=== PATIENT | female | born 1945 | race Asian ===

== ENCOUNTER → 2021-03-23 09:30 | Outpatient (CLI) | payer MEDICARE, SELFPAY ==
[2021-03-23] MEDS: COVID-19 VACC #1, MRNA(MOD) 100 MCG/0.5 ML VIAL IM (09:44)
== END ==
PROVIDERS: Visit Provider Internal Medicine
DX: Z23 Encounter for immunization (principal)
CPT/HCPCS: 0011A; 91301

== ENCOUNTER → 2021-04-28 09:11 | Outpatient (CLI) | payer MEDICARE, SELFPAY ==
[2021-04-28] MEDS: COVID-19 VACC #2, MRNA(MOD) 100 MCG/0.5 ML VIAL IM (09:20)
== END ==
PROVIDERS: Visit Provider Internal Medicine
DX: Z23 Encounter for immunization (principal)
CPT/HCPCS: 0012A; 91301

== ENCOUNTER 2022-10-29 13:08 | Emergency (ER) | payer OTHER, SELFPAY ==
[2022-10-29] VITALS (24 sets, daily range): BP systolic 127–241; BP diastolic 70–135; PULSE 64–108; RESP 11–31; TEMP 36.5; O2SAT 91–100; BMI 26.9
--- NOTE | 2022-10-29 14:12 | DI.RAD.S_ITS ---
PROCEDURE: XR CHEST 1V INDICATIONS: chest pain TECHNIQUE: One view of the chest was acquired. COMPARISON: None. FINDINGS: Surgical changes and devices: None. Lungs and pleura: Mild pulmonary vascular congestion is seen. No pleural effusions or pneumothorax. Mediastinum: Mildly tortuous thoracic aorta is seen. Heart size is mildly enlarged. Bones and chest wall: No suspicious bony lesions. Overlying soft tissues appear unremarkable. IMPRESSION: Mild CHF changes. No definite focal infiltrate. No pleural effusion or pneumothorax. Dictated by: Robin Pruett M.D. on 10/29/2022 at 14:42 Approved by: Robin Pruett M.D. on 10/29/2022 at 14:47
[2022-10-29 15:23] LABS: Add Manual Diff / Slide Review NO; Basophils Absolute Auto 100 /uL (0-100); Basophils Percent Auto 1.2 % (0-2); Eosinophils Absolute Auto 100 /uL (0-450); Eosinophils Percent Auto 2.1 % (2-4); Hematocrit 40.8 % (36-46); Hemoglobin 13.8 g/dL (12.0-16.0); Lymphocytes Absolute Auto 1400 /uL (1100-4500); Lymphocytes Percent Auto 19.3 % (25-40); Mean Corpuscular HGB Conc 33.8 % (30-36); Mean Corpuscular Hemoglobin 29.8 PG (26-34); Monocytes Absolute Auto 500 /uL (0-900); Monocytes Percent Auto 7.5 % (3-14); Neutrophils Absolute Auto 5000 /uL (1500-7000); Neutrophils Percent Auto 69.9 % (50-75); Platelet Count 367 X10^3/uL (150-400); Red Blood Cell Count 4.64 X10^6/uL (4.0-5.2); Red Cell Distribution Width 14.6 % (11.6-14.8); White Blood Cell Count 7.2 X10^3/uL (4.5-11.0)
[2022-10-29 15:30] LABS: INR 0.9 (0.9-1.3); Prothrombin Time 10.5 SECONDS (10.1-12.7)
[2022-10-29 15:35] LABS: Alanine Aminotransferase 23 IU/L (<35); Albumin 4.7 g/dL (3.5-5.0); Albumin Globulin Ratio 1.1 (1.0-2.8); Alkaline Phosphatase 56 U/L (38-126); BUN Creatinine Ratio 28.9 (6-22); Bilirubin Total 1.3 mg/dL (0.2-1.3); Blood Urea Nitrogen 13 mg/dL (7-17); Calcium 9.3 mg/dL (8.4-10.2); Carbon Dioxide 25 mmol/L (22-32); Chloride 104 mmol/L (98-107); Creatine Kinase 160 U/L (30-135); Estimated Glomerular Filt Rate > 60 mL/min (>60); Globulin 4.3 g/dL (1.7-4.1); Glucose 111 mg/dL (80-110); Lipase 122 U/L (23-300); Magnesium 2.3 mg/dL (1.6-2.3); Sodium 139 mmol/L (137-145)
[2022-10-29 15:37] LABS: COVID19 -Nasal RAPID Negative (Negative); HEMOLYSIS 208 (0-50)
[2022-10-29 15:40] LABS: PTT Partial Thromboplastin Tim 36 SECONDS (26-36)
[2022-10-29 15:45] LABS: Troponin I 0.018 ng/mL (0.01-0.034)
[2022-10-29 15:50] LABS: CKMB % Relative Index 0.4 % (1.5-5.0)
--- NOTE | 2022-10-29 16:47 | ED_ITS ---
HPI - General Adult General Chief complaint: Hypertension Stated complaint: HTN Time Seen by Provider: 10/29/22 15:54 Source: patient and EMS Mode of arrival: EMS History of Present Illness HPI narrative: Patient is a 77-year-old female history of hypertension managed by her PCP. Presents today with left-sided chest pain. She got up to go the bathroom and noticed there is left chest pain. She thought she felt a lump there she used pr essure points in [place] medicine to help it. It unfortunately did not go away. She denies any shortness of breath. She is quite talkative. Frustrated that she is been in the ER for so long. She is noted to be quite hypertensive with a blood pressure 222/135. She has no known coronary artery disease. She is not had fever or chills. She denies any abdominal pain nausea or vomiting. She tristan ps bringing up cancer she was worried that it might be breast cancer. Related Data Allergies Allergy/AdvReac Type Severity Reaction Status Date / Time aspirin Allergy Unknown Verified 10/29/22 13:13 Review of Systems Review of Systems Narrative: GENERAL: Denies chills, fatigue, malaise, fever, sweats, travel HEENT: Denies sinus pain, ear pain, sore throat, difficulty swallowing, neck pain RESPIRATORY: Denies dyspnea, cough, wheezing, hemoptysis, sputum. CARDIOVASCULAR: See HPI GASTROINTESTINAL: Denies nausea, vomiting, abdominal pain, diarrhea, constipation, melena. : Denies dysuria, frequency, incontinence, hematuria, urinary retention, flank pain. MUSCULOSKELETAL: Denies weakness, joint pain, or bony pain SKIN: No rash, no erythema, no pruritus NEUROLOGIC: Denies weakness, dizziness, headache, numbness, change in speech, co nfusion PSYCHIATRIC: No concerning psychosocial issues. 12 point review of systems is negative except for those stated above and HPI Patient History Social History Smoking Status: Never smoker Smoking Status: Never smoker alcohol intake frequency: 0-2 drinks per day Substance Use Type: does not use Exam Initial Vital Signs Initial Vital Signs: Vital Signs Temperature 97.7 F 10/29/22 13:09 Pulse Rate 94 H 10/29/22 13:09 Respiratory Rate 14 10/29/22 13:09 Blood Pressure 222/135 H 10/29/22 13:09 Pulse Oximetry 99 10/29/22 13:09 Oxygen Delivery Method 10/29/22 13:09 GENERAL: Alert talkative frustrated 77-year-old female HEENT: Head atraumatic,EOMI, pupils reactive, face symmetric, moist mucous membranes CARDIOVASCULAR: Regular rate and rhythm without murmurs, rubs or gallops. Pain left side of between ribs 2 and 3 mildly tender to touch slightly reproducible no mass RESPIRATORY: Breath sounds equal bilaterally, no wheezes rales or rhonchi. ABDOMEN: Soft, nontender. Normoactive bowel sounds all 4 quadrants. No guarding or rebound. EXTREMITIES: Normal range of motion, no clubbing or edema. Neurovascularly intact NEUROLOGICAL: Alert and oriented x4.Normal gait and speech. SKIN: Warm, dry, no laceration, no petechiae, no rashes or lesions. Course Orders Ordered: Discontinued Medications Labetalol HCl (Labetalol 20 Mg/4 Ml Syringe) 20 mg IV NOW ONE Stop: 10/29/22 15:55 Last Admin: 10/29/22 18:44 Dose: 20 mg Documented By: TYREL Vital Signs Vital signs: Vital Signs - 8 hr 10/29/22 13:09 10/29/22 15:08 10/29/22 15:09 Temperature 97.7 F Pulse Rate 94 H 92 H 87 Respiratory Rate 14 13 16 Blood Pressure 222/135 H Pulse Oximetry 99 99 99 Oxygen Delivery Method Room Air 10/29/22 15:09 10/29/22 15:15 10/29/22 15:15 Temperature Pulse Rate 85 Respiratory Rate 16 Blood Pressure 241/122 H 197/98 H Pulse Oximetry 98 Oxygen Delivery Method Room Air 10/29/22 15:30 10/29/22 15:30 10/29/22 15:45 Temperature Pulse Rate 79 Respiratory Rate 22 Blood Pressure 155/77 H 217/101 H Pulse Oximetry 94 Oxygen Delivery Method 10/29/22 15:45 10/29/22 15:47 10/29/22 15:47 Temperature Pulse Rate 84 82 Respiratory Rate 31 H 24 Blood Pressure 206/99 H Pulse Oximetry 97 97 Oxygen Delivery Method 10/29/22 16:00 10/29/22 16:01 10/29/22 16:01 Temperature Pulse Rate 78 80 Respiratory Rate 22 11 L Blood Pressure 146/72 H Pulse Oximetry 91 98 Oxygen Delivery Method 10/29/22 16:08 10/29/22 16:08 10/29/22 16:15 Temperature Pulse Rate 80 Respiratory Rate 23 Blood Pressure 142/95 H 127/81 Pulse Oximetry 95 Oxygen Delivery Method 10/29/22 16:15 10/29/22 16:30 10/29/22 16:30 Temperature Pulse Rate 79 79 Respiratory Rate 20 19 Blood Pressure 154/81 H Pulse Oximetry 94 94 Oxygen Delivery Method 10/29/22 16:45 10/29/22 16:57 10/29/22 16:57 Temperature Pulse Rate 83 103 H Respiratory Rate Blood Pressure 213/120 H Pulse Oximetry 92 Oxygen Delivery Method 10/29/22 17:00 10/29/22 17:00 10/29/22 17:15 Temperature Pulse Rate 108 H 86 Respiratory Rate 23 Blood Pressure 219/120 H Pulse Oximetry Oxygen Delivery Method 10/29/22 18:44 10/29/22 17:17 10/29/22 18:36 Temperature Pulse Rate 88 85 Respiratory Rate 12 Blood Pressure 201/101 H 201/125 H Pulse Oximetry 98 Oxygen Delivery Method Medical Decision Making Lab Data Result diagrams: 10/29/22 15:10 10/29/22 15:10 Labs: Lab Results 10/29/22 10/29/22 10/29/22 Range/Units 15:10 15:10 15:10 WBC 7.2 (4.5-11.0) X10^3/uL RBC 4.64 (4.0-5.2) X10^6/uL Hgb 13.8 (12.0-16.0) g/dL Hct 40.8 (36-46) % MCV 88.0 (80-100) fL MCH 29.8 (26-34) PG MCHC 33.8 (30-36) % RDW 14.6 (11.6-14.8) % Plt Count 367 (150-400) X10^3/uL Neut % (Auto) 69.9 (50-75) % Lymph % (Auto) 19.3 L (25-40) % [place] % (Auto) 7.5 (3-14) % Eos % (Auto) 2.1 (2-4) % Baso % (Auto) 1.2 (0-2) % Neut # (Auto) 5000 (6379-1281) /uL Lymph # (Auto) 1400 (0008-9599) /uL [place] # (Auto) 500 (0-900) /uL Eos # (Auto) 100 (0-450) /uL Baso # (Auto) 100 (0-100) /uL PT 10.5 (10.1-12.7) SECONDS INR 0.9 (0.9-1.3) APTT 36 (26-36) SECONDS Sodium 139 (137-145) mmol/L Potassium 5.7 H (3.4-5.1) mmol/L Chloride 104 (98-107) mmol/L Carbon Dioxide 25 (22-32) mmol/L BUN 13 (7-17) mg/dL Creatinine 0.45 L (0.52-1.04) mg/dL Estimated GFR > 60 (>60) mL/min BUN/Creatinine Ratio 28.9 H (6-22) Glucose 111 H (80-110) mg/dL Calcium 9.3 (8.4-10.2) mg/dL Magnesium 2.3 (1.6-2.3) mg/dL Total Bilirubin 1.3 (0.2-1.3) mg/dL AST 47 H (14-36) IU/L ALT 23 (<35) IU/L Alkaline Phosphatase 56 (38-126) U/L Total Creatine Kinase 160 H (30-135) U/L CK-MB (CK-2) 0.70 (<2.37) ng/mL CK-MB (CK-2) Rel Index 0.4 L (1.5-5.0) % Troponin I 0.018 (0.01-0.034) ng/mL Total Protein 9.0 H (6.3-8.2) g/dL Albumin 4.7 (3.5-5.0) g/dL Globulin 4.3 H (1.7-4.1) g/dL Albumin/Globulin Ratio 1.1 (1.0-2.8) Lipase 122 (23-300) U/L SARS-CoV-2 (PCR) (Negative) 10/29/22 10/29/22 Range/Units 15:10 17:58 WBC (4.5-11.0) X10^3/uL RBC (4.0-5.2) X10^6/uL Hgb (12.0-16.0) g/dL Hct (36-46) % MCV (80-100) fL MCH (26-34) PG MCHC (30-36) % RDW (11.6-14.8) % Plt Count (150-400) X10^3/uL Neut % (Auto) (50-75) % Lymph % (Auto) (25-40) % [place] % (Auto) (3-14) % Eos % (Auto) (2-4) % Baso % (Auto) (0-2) % Neut # (Auto) (1300-2657) /uL Lymph # (Auto) (8761-1795) /uL [place] # (Auto) (0-900) /uL Eos # (Auto) (0-450) /uL Baso # (Auto) (0-100) /uL PT (10.1-12.7) SECONDS INR (0.9-1.3) APTT (26-36) SECONDS Sodium (137-145) mmol/L Potassium (3.4-5.1) mmol/L Chloride (98-107) mmol/L Carbon Dioxide (22-32) mmol/L BUN (7-17) mg/dL Creatinine (0.52-1.04) mg/dL Estimated GFR (>60) mL/min BUN/Creatinine Ratio (6-22) Glucose (80-110) mg/dL Calcium (8.4-10.2) mg/dL Magnesium (1.6-2.3) mg/dL Total Bilirubin (0.2-1.3) mg/dL AST (14-36) IU/L ALT (<35) IU/L Alkaline Phosphatase (38-126) U/L Total Creatine Kinase (30-135) U/L CK-MB (CK-2) (<2.37) ng/mL CK-MB (CK-2) Rel Index (1.5-5.0) % Troponin I 0.013 (0.01-0.034) ng/mL Total Protein (6.3-8.2) g/dL Albumin (3.5-5.0) g/dL Globulin (1.7-4.1) g/dL Albumin/Globulin Ratio (1.0-2.8) Lipase (23-300) U/L SARS-CoV-2 (PCR) Negative (Negative) Urine Dip Bedside Urine Glucose Negative Bedside Urine Bilirubin - Negative Bedside Urine Ketone - Negative Urine Specific [place] 1.01 Bedside Urine Occult Blood +/- Bedside Urine pH 7 Bedside Urine Protein - Negative Bedside Urine Urobilinogen - Negative Bedside Urine Nitrite - Negative Bedside Urine Leukocytes - Negative Esterase Point of care testing: Urine Dip Bedside Urine Glucose Negative Bedside Urine Bilirubin - Negative Bedside Urine Ketone - Negative Urine Specific [place] 1.01 Bedside Urine Occult Blood +/- Bedside Urine pH 7 Bedside Urine Protein - Negative Bedside Urine Urobilinogen - Negative Bedside Urine Nitrite - Negative Bedside Urine Leukocytes - Negative Esterase Imaging Data Chest x-ray: Radiologist's Impression: XRay Report Signed Patient: Sully Moss MR#: [id number] : 1945 Acct:[id number] Age/Sex: 77 / F Date of Service: 10/29/22 Loc: ED Accession Number: [id number] ?? Procedure: XR chest 1V Ordering Provider: Caroline Cohen D.O. PROCEDURE:? XR CHEST 1V ? INDICATIONS:? chest pain ? TECHNIQUE:? One view of the chest was acquired.? ? COMPARISON:? None. ? FINDINGS:? ? Surgical changes and devices:? None.? ? Lungs and pleura:? Mild pulmonary vascular congestion is seen.? No pleural effusions or pneumothorax.? ? Mediastinum:? Mildly tortuous thoracic aorta is seen.? Heart size is mildly enlarged. ? Bones and chest wall:? No suspicious bony lesions.? Overlying soft tissues appear unremarkable.? ? IMPRESSION:? Mild CHF changes.? No definite focal infiltrate.? No pleural effusion or pneumothorax. ? ? Dictated by: Robin Pruett M.D. on 10/29/2022 at 14:42 ? ? CT scan - chest: Radiologist's Impression: CT Scan Report Signed Patient: Sully Moss MR#: [id number] : 1945 Acct:[id number] Age/Sex: 77 / F Date of Service: 10/29/22 Loc: ED Accession Number: [id number] ?? Procedure: CT angio chest abdomen pelvis Ordering Provider: Caroline Cohen D.O. PROCEDURE:? CT ANGIO CHEST ABDOMEN PELVIS ? INDICATIONS:? chest pain hypertension ? TECHNIQUE:? Precontrast 5 mm thick sections acquired from the lung apices to the iliac crests.? After the administration of intravenous contrast, 2.5 mm thick sections again acquired from the lung apices to the iliac crests.? Maximum intensity projection (MIP) oblique sagittal and coronal reformats were then acquired.? For radiation dose reduction, the following was used:? automated exposure control.? ? COMPARISON:? None. ? FINDINGS:? Image quality:? Excellent.? ? AORTA:? The thoracoabdominal aorta demonstrates no evidence of dissection, significant stenosis, or aneurysm. ? CHEST:? Lungs and pleura:? Mild patchy bilateral mid and lower lung reticulonodular ill- defined densities.? No pleural effusions or pneumothorax.? Central and peripheral airways are patent and normal in caliber.? ? Mediastinum:? Heart size is normal.? Mild calcification of the coronary vasculature.? No pericardial effusion.? No mediastinal or hilar adenopathy by size criteria.? Central pulmonary arteries are normal in size.? Esophagus is normal in caliber.? No hiatal hernias.? ? Bones and chest wall:? No axillary adenopathy by size criteria.? Thyroid gland is within normal limits .? No suspicious bony lesions.? No vertebral body compression fractures.? ? ? ABDOMEN:? Vasculature:? Celiac trunk and mesenteric arteries are patent.? Renal arteries are also patent.? ? Solid organs:? Liver is normal in size .? Right and left hepatic lobe cysts are present.? Gallbladder is surgically absent .? Biliary system is non dilated.? Pancreas enhances normally.? Spleen is normal in size and enhancement.? No right adrenal nodules 15 mm nodule within the medial limb of the left adrenal demonstrating postcontrast Hounsfield units of 31. Both kidneys are normal in size and enhancement, without hydronephrosis.? ? Peritoneum and bowel:? No free fluid or air.? Bowel loops are normal in caliber and wall thickness.? Normal appendix. ? Nodes and vessels:? No retroperitoneal or mesenteric adenopathy by size criteria.? Inferior vena cava is normal in morphology.? ? Miscellaneous:? No ventral hernias.? ? ? PELVIS:? Genitourinary:? Bladder wall thickness is normal.? ? Miscellaneous:? No inguinal hernias or adenopathy.? No ventral hernias.? ? Bones:? No suspicious bony lesions.? No vertebral body compression fractures.? ? ? IMPRESSION:? 1. No acute process. 2. Indeterminate left adrenal nodule; initial further assessment with nonemergent outpatient follow-up adrenal protocol MRI is recommended. 3. Coronary artery disease. 4. Normal appendix. ? ? ? Dictated by: Julia Avalos M.D. on 10/29/2022 at 16:44 ? ? Approved by: Julia Avalos M.D. on 10/29/2022 at 16:47 ? ECG Data Interpretation: Normal sinus rhythm rate 83 HI interval 178 QRS [address] QTC [address] elevations or depressions no T-wave inversions, no priors to comp are MDM Narrative Medical decision making narrative: Patient presents with left-sided chest hypotension. Initial blood work does not show any evidence of hypertensive emergency. After a long conversation with 1 of our staff members her blood pressure came down into the 140s however quickly went right back up into the 200s. I suspect that she is uncontrolled hypotension. She is given 1 dose of labetalol here in the ED blood pressure improves. She is 2- troponins. Recommend that she monitor her blood pressure at home and talk with her PCP in regards to better blood pressure control. She may also require outpatient stress test. I have sent a note to her PCP for this. There is significant bed shortage at this time, unable to get a stress test. At this time she is walking around I think reasonable to discharge her with close outpatient follow-up I have spoken with Dr. Gonzalez in regards to patient in follow-up. At this time agrees with outpatient follow-up better blood pressure control. Unable to tell me what she is on no medication adjustment this time. Recommend calling clinic tomorrow Discharge Plan Departure Patient Disposition: Home Clinical Impression: Hypertension, Atypical chest pain Instructions: DI for High Blood Pressure, DI for Atypical Chest Pain Activity Restrictions/Additional Instructions: *You have been diagnosed with chest pain high blood pressure *What to do: Please monitor your blood pressure at home check once daily Please talk with your primary care provider you may need a stress test as well. *Continue to take medications as directed *Follow up with your primary care provider in 2-3 days or call [phone] *Return to ER if you should have increasing chest pain shortness of breath, or any new, worsening or concerning symptoms Visit Report Forms: Patient Portal/API
--- NOTE | 2022-10-29 17:05 | DI.CT.S_ITS ---
PROCEDURE: CT ANGIO CHEST ABDOMEN PELVIS INDICATIONS: chest pain hypertension TECHNIQUE: Precontrast 5 mm thick sections acquired from the lung apices to the iliac crests. After the administration of intravenous contrast, 2.5 mm thick sections again acquired from the lung apices to the iliac crests. Maximum intensity projection (MIP) oblique sagittal and coronal reformats were then acquired. For radiation dose reduction, the following was used: automated exposure control. COMPARISON: None. FINDINGS: Image quality: Excellent. AORTA: The thoracoabdominal aorta demonstrates no evidence of dissection, significant stenosis, or aneurysm. CHEST: Lungs and pleura: Mild patchy bilateral mid and lower lung reticulonodular ill-defined densities. No pleural effusions or pneumothorax. Central and peripheral airways are patent and normal in caliber. Mediastinum: Heart size is normal. Mild calcification of the coronary vasculature. No pericardial effusion. No mediastinal or hilar adenopathy by size criteria. Central pulmonary arteries are normal in size. Esophagus is normal in caliber. No hiatal hernias. Bones and chest wall: No axillary adenopathy by size criteria. Thyroid gland is within normal limits . No suspicious bony lesions. No vertebral body compression fractures. ABDOMEN: Vasculature: Celiac trunk and mesenteric arteries are patent. Renal arteries are also patent. Solid organs: Liver is normal in size . Right and left hepatic lobe cysts are present. Gallbladder is surgically absent . Biliary system is non dilated. Pancreas enhances normally. Spleen is normal in size and enhancement. No right adrenal nodules 15 mm nodule within the medial limb of the left adrenal demonstrating postcontrast Hounsfield units of 31. Both kidneys are normal in size and enhancement, without hydronephrosis. Peritoneum and bowel: No free fluid or air. Bowel loops are normal in caliber and wall thickness. Normal appendix. Nodes and vessels: No retroperitoneal or mesenteric adenopathy by size criteria. Inferior vena cava is normal in morphology. Miscellaneous: No ventral hernias. PELVIS: Genitourinary: Bladder wall thickness is normal. Miscellaneous: No inguinal hernias or adenopathy. No ventral hernias. Bones: No suspicious bony lesions. No vertebral body compression fractures. IMPRESSION: 1. No acute process. 2. Indeterminate left adrenal nodule; initial further assessment with nonemergent outpatient follow-up adrenal protocol MRI is recommended. 3. Coronary artery disease. 4. Normal appendix. Dictated by: Julia Avalos M.D. on 10/29/2022 at 16:44 Approved by: Julia Avalos M.D. on 10/29/2022 at 16:47
--- NOTE | 2022-10-29 18:11 | PC.NURSE ---
Pt presents with elevated BP. Denies any SOB, chest pain, N&V, or any pain. Pt does take medications for her BP, but does not remember what. Pt says [facility] PCP [facility] [place].
[2022-10-29 18:42] LABS: Troponin I 0.013 ng/mL (0.01-0.034)
[2022-10-29] MEDS: LABETALOL 20 MG/4 ML SYRINGE IV (18:44)
[2022-11-06 16:13] LABS: Potassium 5.7 mmol/L (3.4-5.1)
[2022-11-06 16:18] LABS: Aspartate Aminotransferase 47 IU/L (14-36)
== END 2022-10-29 19:35 | disposition home or self-care (01) ==
PROVIDERS: Emergency Provider Emergency Medicine
DX: I10 Essential (primary) hypertension (principal); R07.9 Chest pain, unspecified; Z20.822 Contact with and (suspected) exposure to COVID-19
CPT/HCPCS: 36415; 71045; 71275; 74174; 80053; 81003; 82550; 82553; 83690; 83735; 84484; 85025; 85610; 85730; 87635; 93005; 93010; 96374; 99284; C9803; Q9967

== ENCOUNTER 2022-11-06 01:27 | Emergency (ER) | payer OTHER, SELFPAY ==
[2022-11-06 01:33] VITALS: BP 208/102; PULSE 61; RESP 16; TEMP 36.9; O2SAT 97; BMI 22.4
[2022-11-06 01:51] LABS: Add Manual Diff / Slide Review NO; Basophils Absolute Auto 100 /uL (0-100); Basophils Percent Auto 1.1 % (0-2); Eosinophils Absolute Auto 100 /uL (0-450); Eosinophils Percent Auto 1.5 % (2-4); Hematocrit 38.7 % (36-46); Hemoglobin 12.6 g/dL (12.0-16.0); Lymphocytes Absolute Auto 1000 /uL (1100-4500); Lymphocytes Percent Auto 16.6 % (25-40); Mean Corpuscular HGB Conc 32.5 % (30-36); Mean Corpuscular Volume 89.3 fL (80-100); Monocytes Absolute Auto 400 /uL (0-900); Monocytes Percent Auto 6.1 % (3-14); Neutrophils Absolute Auto 4600 /uL (1500-7000); Neutrophils Percent Auto 74.7 % (50-75); Platelet Count 350 X10^3/uL (150-400); Red Blood Cell Count 4.33 X10^6/uL (4.0-5.2); Red Cell Distribution Width 14.8 % (11.6-14.8); White Blood Cell Count 6.2 X10^3/uL (4.5-11.0)
[2022-11-06 01:52] LABS: Prothrombin Time 11.4 SECONDS (10.1-12.7)
[2022-11-06 01:56] LABS: Alanine Aminotransferase 20 IU/L (<35); Albumin 4.2 g/dL (3.5-5.0); Albumin Globulin Ratio 1.3 (1.0-2.8); Alkaline Phosphatase 58 U/L (38-126); Aspartate Aminotransferase 26 IU/L (14-36); BUN Creatinine Ratio 26.8 (6-22); Bilirubin Total 0.7 mg/dL (0.2-1.3); Blood Urea Nitrogen 15 mg/dL (7-17); Calcium 9.2 mg/dL (8.4-10.2); Carbon Dioxide 27 mmol/L (22-32); Chloride 100 mmol/L (98-107); Estimated Glomerular Filt Rate > 60 mL/min (>60); Globulin 3.3 g/dL (1.7-4.1); Glucose 120 mg/dL (80-110); HEMOLYSIS < 15 (0-50); Lipase 96 U/L (23-300); Potassium 3.5 mmol/L (3.4-5.1); Sodium 136 mmol/L (137-145); Total Protein 7.5 g/dL (6.3-8.2)
--- NOTE | 2022-11-06 01:59 | ED.GENADULT ---
HPI - General Adult General Chief complaint: Abdominal Pain Stated complaint: abd px Time Seen by Provider: 11/06/22 01:30 Source: patient Mode of arrival: EMS Limitations: no limitations History of Present Illness HPI narrative: Patient is a 77-year-old female who is here for evaluation of which she states initially was lower abdominal pain. Upon my evaluation she states that she is constipated. Has been a couple days and she is had a bowel movement. She told me that she was not having abdominal pain. She stated that she felt like there was stool about ready to come out but it was very hard. She tried to disimpact herself at home without any success. She also states she took some Imodium not knowing that this medication could potentially make her constipation worse. She is not tried any laxatives. Has not had any vomiting. Related Data Allergies Allergy/AdvReac Type Severity Reaction Status Date / Time aspirin Allergy Unknown Verified 10/29/22 13:13 Review of Systems Constitutional Constitutional: Reports system reviewed and no additional complaints, except as documented Gastrointestinal Gastrointestinal: Reports system reviewed and no additional complaints, except as documented Genitourinary Genitourinary: Reports system reviewed and no additional complaints, except as documented Hematologic/Lymphatic On Anticoagulants: No Patient History Medical History Hypertension Social History Smoking Status: Never smoker Smoking Status: Never smoker alcohol intake frequency: 0-2 drinks per day Substance Use Type: does not use Exam Initial Vital Signs Initial Vital Signs: Vital Signs Temperature 98.4 F 11/06/22 01:33 Pulse Rate 61 11/06/22 01:33 Respiratory Rate 16 11/06/22 01:33 Blood Pressure 208/102 H 11/06/22 01:33 Pulse Oximetry 97 11/06/22 01:33 Oxygen Delivery Method 11/06/22 01:33 Const General: cooperative and comfortable HENMT Head: normal to inspection and normocephalic Resp Effort & Inspection: normal respiratory effort Cardio Rate: regular rate GI Inspection: normal to inspection Palpation: soft, No firm and No tender Skin General: no rashes or lesions noted Neuro General: patient alert, patient awake and moves all extremities Extrem General: normal to inspection and capillary refill normal Psych Appearance: grossly normal Course Orders Ordered: ED Orders 11/06/22 01:35 Complete Blood Count AUTO DIFF Stat Comprehensive Metabolic Panel Stat Lipase Stat Prothrombin Time INR Stat 11/06/22 01:36 EKG-12 Lead Stat Discontinued Medications Magnesium Hydroxide (Magnesium Hydroxide 30 Ml Udc) 30 ml PO NOW ONE Stop: 11/06/22 03:13 Last Admin: 11/06/22 03:22 Dose: 30 ml Documented By: JACKSON Sodium Biphosphate/Sodium Phosphate (Fleets Enema) 1 each ID NOW ONE Stop: 11/06/22 01:59 Last Admin: 11/06/22 02:22 Dose: 1 each Documented By: JACKSON Vital Signs Vital signs: Vital Signs - 8 hr 11/06/22 01:33 Temperature 98.4 F Pulse Rate 61 Respiratory Rate 16 Blood Pressure 208/102 H Pulse Oximetry 97 Oxygen Delivery Method Room Air Medical Decision Making Medical Records Medical records reviewed: Yes I reviewed the patient's medical records. Lab Data Lab results reviewed: Yes I reviewed the patient's lab results. Result diagrams: 11/06/22 01:35 11/06/22 01:35 Labs: Lab Results 11/06/22 11/06/22 11/06/22 Range/Units 01:35 01:35 01:35 WBC 6.2 (4.5-11.0) X10^3/uL RBC 4.33 (4.0-5.2) X10^6/uL Hgb 12.6 (12.0-16.0) g/dL Hct 38.7 (36-46) % MCV 89.3 (80-100) fL MCH 29.0 (26-34) PG MCHC 32.5 (30-36) % RDW 14.8 (11.6-14.8) % Plt Count 350 (150-400) X10^3/uL Neut % (Auto) 74.7 (50-75) % Lymph % (Auto) 16.6 L (25-40) % [place] % (Auto) 6.1 (3-14) % Eos % (Auto) 1.5 L (2-4) % Baso % (Auto) 1.1 (0-2) % Neut # (Auto) 4600 (3368-8251) /uL Lymph # (Auto) 1000 L (4435-5978) /uL [place] # (Auto) 400 (0-900) /uL Eos # (Auto) 100 (0-450) /uL Baso # (Auto) 100 (0-100) /uL PT 11.4 (10.1-12.7) SECONDS INR 1.0 (0.9-1.3) Sodium 136 L (137-145) mmol/L Potassium 3.5 D (3.4-5.1) mmol/L Chloride 100 (98-107) mmol/L Carbon Dioxide 27 (22-32) mmol/L BUN 15 (7-17) mg/dL Creatinine 0.56 (0.52-1.04) mg/dL Estimated GFR > 60 (>60) mL/min BUN/Creatinine Ratio 26.8 H (6-22) Glucose 120 H (80-110) mg/dL Calcium 9.2 (8.4-10.2) mg/dL Total Bilirubin 0.7 (0.2-1.3) mg/dL AST 26 (14-36) IU/L ALT 20 (<35) IU/L Alkaline Phosphatase 58 (38-126) U/L Total Protein 7.5 (6.3-8.2) g/dL Albumin 4.2 (3.5-5.0) g/dL Globulin 3.3 (1.7-4.1) g/dL Albumin/Globulin Ratio 1.3 (1.0-2.8) Lipase 96 (23-300) U/L ECG Data Attestation: I personally reviewed and interpreted this ECG as follows: Interpretation: Sinus bradycardia Ventricular rate of 58 LVH Normal axis Nonspecific ST T wave changes MDM Narrative Medical decision making narrative: Patient has a benign abdominal exam. Labs are unremarkable. I do feel that we can hold on any radiologic studies for now. She was given an enema with a very small bowel movement afterwards. She states that a lot of time she will drink some milk and that will cause her to have a bowel movement so she was given milk here in the ER. We also did milk of magnesia. I told her to avoid taking the Imodium. She was given return precautions. She expressed understanding and agreement. Discharge Plan Departure Patient Disposition: Home Clinical Impression: Constipation Instructions: DI for Constipation Activity Restrictions/Additional Instructions: I recommend that you continue with laxatives. You can try [id number] laxatives such as MiraLax. Be sure that you increase your fluid intake. Return to the emergency department for any new symptoms.
[2022-11-06] MEDS: FLEETS ENEMA 1 EACH PR (02:22)
[2022-11-06] MEDS: MAGNESIUM HYDROXIDE 30 ML UDC PO (03:22)
[2022-11-06 04:43] VITALS: BP 195/89; PULSE 84; RESP 20; O2SAT 97
== END 2022-11-06 04:45 | disposition home or self-care (01) ==
PROVIDERS: Emergency Provider Emergency Medicine
DX: K59.00 Constipation, unspecified (principal); R00.1 Bradycardia, unspecified
CPT/HCPCS: 36415; 80053; 83690; 85025; 85610; 93005; 99283; 99284

== ENCOUNTER → 2022-11-16 14:59 | Outpatient (CLI) | payer OTHER, SELFPAY ==
--- NOTE | 2022-11-16 15:00 | DI.MG.S_ITS ---
BILATERAL DIGITAL SCREENING MAMMOGRAM 3D/2D WITH CAD: 11/16/2022 CLINICAL: Routine screening. Comparison is made to exam dated: 09/21/2020 mammogram - outside. There are scattered areas of fibroglandular density in both breasts (category b / 25%-50% glandular tissue). Current study was also evaluated with a Computer Aided Detection (CAD) system. No significant masses, calcifications, or other findings are seen in either breast. There has been no significant interval change. IMPRESSION: NEGATIVE There is no mammographic evidence of malignancy. A 1 year screening mammogram is recommended. Based on the Tyrer Cuzick model (a risk assessment model) the patient's lifetime risk is 3.1% and her 10 year risk is 3.1%. According to the ACR, ACS, and NCCN guidelines, an annual breast MRI exam along with mammogram is recommended if the patient's lifetime risk is 20% or greater. This exam was interpreted at Station ID: [id number]. NOTE: For mammograms, a report in lay terms will be sent to the patient. Approximately 15% of breast malignancies will not be visualized mammographically. In the management of a palpable breast mass, a negative mammogram must not discourage biopsy of a clinically suspicious lesion. Electronically Signed By: Penelope tapia/ha:11/16/2022 16:19:42 letter sent: Normal Exam ACR BI-RADS Category 1: Negative 3341F
--- NOTE | 2022-11-16 15:01 | DI.MRI.S_ITS ---
PROCEDURE: MR ABDOMEN WO CON INDICATIONS: disorders of adrenal gland TECHNIQUE: Coronal HASTE, axial 2-D FLASH in- and [id number] with subtractions from the hepatic dome to the iliac crests. COMPARISON: [facility], CT, CT ANGIO CHEST ABDOMEN PELVIS, 10/29/2022, 17:25. FINDINGS: Image quality: There is susceptibility artifact in the anterior part of the image, likely from overlying material, obscuring these regions. Please note this is noncontrast MR with limited sequences to only evaluate the adrenals and intra-abdominal findings are not fully evaluated. There is also motion degradation. Lower chest: No basal effusions. Lungs are not well evaluated on this study. Solid organs: Suspected liver cysts. Some of these have hypointense rim, which may be from prior hemorrhage. These are incompletely evaluated on this noncontrast MR. Gallbladder is absent. No pathologic dilation of the biliary tree or pancreatic duct, in the absence of the gallbladder. No splenomegaly. No hydronephrosis. Left medial adrenal nodule demonstrates chemical shift artifact, compatible with a lipid rich adenoma. This is also supported by the low attenuation on precontrast images from prior CT. Vessels and lymph nodes: No abdominal aortic aneurysm. No obvious adenopathy. Bowel and peritoneum: No bowel obstruction. Mildly distended stomach. No definite ascites. Body wall: Not fully evaluated, overall unremarkable. Bones: No acute or suspicious osseous finding. There is scoliosis. IMPRESSION: Left adrenal lesion is compatible with a lipid rich adenoma. Other findings are not well evaluated on this dedicated MR for the adrenal glands. Dictated by: Ravindra Ramos M.D. on 11/16/2022 at 17:19 Approved by: Ravindra Ramos M.D. on 11/16/2022 at 17:25
== END ==
PROVIDERS: PCP Family Medicine; Referring Provider Family Medicine; Visit Provider Family Medicine
DX: Z12.31 Encounter for screening mammogram for malignant neoplasm of breast (principal); E27.8 Other specified disorders of adrenal gland
CPT/HCPCS: 74181; 77063; 77067

== ENCOUNTER → 2022-11-23 11:03 | Outpatient (CLI) | payer OTHER, SELFPAY ==
--- NOTE | 2022-11-23 | DI.RAD.S_ITS ---
PROCEDURE: XR KNEE RT 3V INDICATIONS: Pain in unspecified knee TECHNIQUE: 3 views of the knee were acquired. COMPARISON: [facility], CR, XR KNEE LT 3V, 11/23/2022, 11:17. FINDINGS: Bones: Severe joint space narrowing at the lateral compartment. There is tricompartmental joint space narrowing and osteophytosis. Heterotopic calcification superior and lateral to the knee joint. Enlarged flabella or heterotopic calcification posteriorly. No fractures or dislocations. No suspicious bony lesions. Soft tissues: No joint effusion. No suspicious soft tissue calcifications. IMPRESSION: Severe DJD at the right knee lateral compartment. Dictated by: Srinivas Saunders M.D. on 11/23/2022 at 14:53 Approved by: Srinivas Saunders M.D. on 11/23/2022 at 14:54
--- NOTE | 2022-11-23 | DI.RAD.S_ITS ---
PROCEDURE: XR KNEE LT 3V INDICATIONS: Pain in unspecified knee TECHNIQUE: 3 views of the knee were acquired. COMPARISON: [facility], CR, XR KNEE RT 3V, 11/23/2022, 11:17. FINDINGS: Bones: No fractures or dislocations. Tricompartmental osteophytosis and joint space narrowing. No suspicious bony lesions. Soft tissues: No joint effusion. No suspicious soft tissue calcifications. IMPRESSION: Moderate to severe left knee DJD. Dictated by: Srinivas Saunders M.D. on 11/23/2022 at 14:51 Approved by: Srinivas Saunders M.D. on 11/23/2022 at 14:52
== END ==
PROVIDERS: PCP Family Medicine; Referring Provider Family Medicine; Visit Provider Family Medicine
DX: M17.0 Bilateral primary osteoarthritis of knee (principal); M25.561 Pain in right knee; M25.562 Pain in left knee
CPT/HCPCS: 73562

== ENCOUNTER → 2022-12-13 12:39 | Outpatient (CLI) | payer OTHER, SELFPAY ==
--- NOTE | 2022-12-13 | DI.RAD.S_ITS ---
PROCEDURE: XR KNEE RT 3V INDICATIONS: Rt Knee Pain TECHNIQUE: 3 views of the knee were acquired. COMPARISON: [facility], CR, XR KNEE RT 3V, 11/23/2022, 11:17. [facility], CR, XR KNEE LT 3V, 11/23/2022, 11:17. FINDINGS: Bones: No acute fracture or dislocation identified. Severe lateral compartment joint space narrowing and articular surface deformity redemonstrated. Severe patellofemoral compartment narrowing and spurring also present. Soft tissues: No definite joint effusion. Similar nonspecific calcification superior and lateral to the knee joint and at the posterior knee. IMPRESSION: No acute abnormality or significant interval change identified. Severe degenerative changes of the knee present as before. If symptoms persist, follow-up radiographs and/or CT or MRI may be helpful for further evaluation. Dictated by: Umesh aBrber M.D. on 12/13/2022 at 20:40 Approved by: Umesh Barber M.D. on 12/13/2022 at 20:43
== END ==
PROVIDERS: PCP Family Medicine; Referring Provider Family Medicine; Visit Provider Family Medicine
DX: M25.561 Pain in right knee (principal)
CPT/HCPCS: 73562

== ENCOUNTER 2022-12-25 11:20 | Emergency (ER) | payer OTHER, SELFPAY ==
[2022-12-25] VITALS (7 sets, daily range): BP systolic 151–197; BP diastolic 81–100; PULSE 55–77; RESP 15; TEMP 37.1; O2SAT 95–98; BMI 29.0
--- NOTE | 2022-12-25 11:34 | ED.GENADULT ---
HPI - General Adult General Chief complaint: Hypertension Stated complaint: hypertension 210/114 no complaints Source: patient Mode of arrival: EMS History of Present Illness HPI narrative: 77-year-old female presenting with asymptomatic hypertension. Patient reports that she is enrolled in her 's morning check in by home Health, found to have hypertension with systolics in the 200s, referred to the emergency department for further evaluation. Patient denies any new or acute symptoms, please chronic right knee pain and financial stress that has been present over the last several months. No chest pain or shortness of breath, no abdominal pain. No headache or change in vision. No focal weakness or numbness. On review of patient's prior medical records, patient is markedly hypertensive on to most recent prior emergency department visits. Related Data Home Medications Medication Instructions Recorded Confirmed atorvastatin 80 mg tablet 80 mg PO DAILY 12/25/22 12/25/22 calcium carb and lactate 200 2 tab PO BID 12/25/22 12/25/22 mg-vitamin D3 6.25 mcg (250 unit) tablet calcium carbonate 600 mg-vitamin 2 tab PO DAILY 12/25/22 12/25/22 D3 10 mcg (400 unit) tablet (Calcium 600 + D(3)) cyanocobalamin (vitamin B-12) 500 mcg PO DAILY 12/25/22 12/25/22 1,000 mcg tablet (Vitamin B-12) hydrochlorothiazide 25 mg tablet 25 mg PO DAILY 12/25/22 12/25/22 irbesartan 150 mg tablet 150 mg PO DAILY 12/25/22 12/25/22 levothyroxine 75 mcg tablet 75 mcg PO DAILY 12/25/22 12/25/22 Allergies Allergy/AdvReac Type Severity Reaction Status Date / Time aspirin Allergy Unknown Verified 12/25/22 11:26 Patient History Medical History Hypertension Social History Smoking Status: Never smoker Smoking Status: Never smoker alcohol intake frequency: holidays/special occasions only Substance Use Type: does not use Exam Narrative Exam Narrative: Vitals reviewed. Nursing note reviewed Constitutional: interactive HENT: Moist mucous membranes EYES: No scleral icterus NECK: no masses CV: Well perfused peripherally, no cyanosis present PULM: Unlabored respirations, symmetric chest rise ABD: Non-distended MS: No gross deformities, no asymmetric edema noted SKIN: Warm and dry. PSYCH: Appropriate affect NEURO: Follows simple commands, moves extremities, interactive with exam Initial Vital Signs Initial Vital Signs: Vital Signs Temperature 98.7 F 12/25/22 11:26 Pulse Rate 75 12/25/22 11:26 Respiratory Rate 15 12/25/22 11:26 Blood Pressure 190/100 H 12/25/22 11:26 Pulse Oximetry 96 12/25/22 11:26 Oxygen Delivery Method 12/25/22 11:26 Course Vital Signs Vital signs: Vital Signs - 8 hr 12/25/22 11:26 Temperature 98.7 F Pulse Rate 75 Respiratory Rate 15 Blood Pressure 190/100 H Pulse Oximetry 96 Oxygen Delivery Method Room Air Medical Decision Making MDM Narrative Medical decision making narrative: 77-year-old female presenting with asymptomatic hypertension in the setting of known poorly controlled hypertension. On presentation, vital signs notable for blood pressure 190/100, this is down trending from prior to arrival without intervention. Physical exam on presentation notable for reassuring cardiopulmonary exam, benign abdomen, no focal neurologic deficits. Initial concern for asymptomatic hypertension, cold CVA, metabolic derangement, infectious etiology, medication noncompliance. Low suspicion for ACS given patient without active symptoms, EKG with normal sinus rhythm, no evidence of acute ischemia. Consistent with ACEP clinical guidelines, further intervention was held given patient continues to be asymptomatic while in the emergency department. Patient's primary care office was contacted to obtain medical records and medications which are not present on the EMR. Patient was observed in the emergency department without intervention had improvement in patient's prior to arrival hypertension down to a blood pressure of 150s systolic. Discussed plan for outpatient follow up with patient's primary care provider to discuss medication management. Patient was instructed to continue her outpatient antihypertensives as directed. Return precautions discussed. Discharge Plan Departure Patient Disposition: Home Clinical Impression: Hypertension Instructions: DI for High Blood Pressure Prescriptions: No Action atorvastatin 80 mg Tablet 80 mg PO DAILY cyanocobalamin (vitamin B-12) [Vitamin B-12] 1,000 mcg Tablet 500 mcg PO DAILY levothyroxine 75 mcg Tablet 75 mcg PO DAILY hydrochlorothiazide 25 mg Tablet 25 mg PO DAILY irbesartan 150 mg Tablet 150 mg PO DAILY calcium carbonate-vitamin D3 [Calcium 600 + D(3)] 600 mg-10 mcg (400 unit) Tablet 2 tab PO DAILY calcium carb,lactat-vitamin D3 200 mg-6.25 mcg (250 unit) Tablet 2 tab PO BID Referrals: Paddy Hartman MD [Primary Care Provider] - Stand Alone Forms: Patient Portal/API
--- NOTE | 2022-12-25 13:00 | PC.NURSE ---
Pt was being checked on per [facility] program by EMS. Blood pressure was 200s/100s and pt PCP advised pt to come to ED. Pt denies any symptoms, no chest pain, headaches, or dizziness. Reports she has been taking all regularly scheduled meds.
== END 2022-12-25 13:30 | disposition home or self-care (01) ==
PROVIDERS: Emergency Provider Emergency Medicine; PCP Family Medicine
DX: I10 Essential (primary) hypertension (principal)
CPT/HCPCS: 93005; 99283

== ENCOUNTER 2023-06-06 11:46 | Emergency (ER) | payer OTHER, SELFPAY ==
[2023-06-06 11:49] VITALS: BP 181/98; PULSE 68; RESP 14; TEMP 36.7; O2SAT 96; BMI 61.2
--- NOTE | 2023-06-06 12:06 | DI.RAD.S_ITS ---
PROCEDURE: XR CHEST 1V INDICATIONS: Shortness of breath TECHNIQUE: One view of the chest was acquired. COMPARISON: [facility], CR, XR CHEST 1V, 10/29/2022, 14:23. FINDINGS: Surgical changes and devices: None. Lungs and pleura: Lungs are clear. No pleural effusions or pneumothorax. Mediastinum: Mediastinal contours appear normal. Heart size is normal. Bones and chest wall: No suspicious bony lesions. Large osteophytes off of the humeral heads bilaterally. Overlying soft tissues appear unremarkable. IMPRESSION: No acute pulmonary process. Dictated by: Aldo Abad M.D. on 06/06/2023 at 12:57 Approved by: Aldo Abad M.D. on 06/06/2023 at 13:06
[2023-06-06 12:30] LABS: Add Manual Diff / Slide Review NO; Basophils Absolute Auto 100 /uL (0-100); Basophils Percent Auto 1.7 % (0-2); Eosinophils Absolute Auto 100 /uL (0-450); Eosinophils Percent Auto 0.9 % (2-4); Hematocrit 41.3 % (36-46); Hemoglobin 13.9 g/dL (12.0-16.0); Lymphocytes Absolute Auto 1700 /uL (1100-4500); Lymphocytes Percent Auto 20.7 % (25-40); Mean Corpuscular HGB Conc 33.8 % (30-36); Mean Corpuscular Volume 88.9 fL (80-100); Monocytes Absolute Auto 700 /uL (0-900); Monocytes Percent Auto 8.9 % (3-14); Neutrophils Absolute Auto 5600 /uL (1500-7000); Neutrophils Percent Auto 67.8 % (50-75); Platelet Count 371 X10^3/uL (150-400); Red Blood Cell Count 4.64 X10^6/uL (4.0-5.2); Red Cell Distribution Width 14.8 % (11.6-14.8); White Blood Cell Count 8.3 X10^3/uL (4.5-11.0)
[2023-06-06 12:39] LABS: Prothrombin Time 11.5 SECONDS (10.1-12.7)
[2023-06-06 12:44] LABS: Lactate (Lactic Acid) 1.1 mmol/L (0.7-2.1)
[2023-06-06 12:45] LABS: Alanine Aminotransferase 31 IU/L (<35); Albumin 4.6 g/dL (3.5-5.0); Albumin Globulin Ratio 1.4 (1.0-2.8); Alkaline Phosphatase 64 U/L (38-126); Aspartate Aminotransferase 41 IU/L (14-36); Bilirubin Total 1.1 mg/dL (0.2-1.3); Blood Urea Nitrogen 19 mg/dL (7-17); Calcium 9.9 mg/dL (8.4-10.2); Carbon Dioxide 26 mmol/L (22-32); Chloride 103 mmol/L (98-107); Estimated Glomerular Filt Rate > 60 mL/min (>60); Globulin 3.4 g/dL (1.7-4.1); Glucose 90 mg/dL (80-110); HEMOLYSIS 29 (0-50); Potassium 4.2 mmol/L (3.4-5.1); Sodium 137 mmol/L (137-145)
[2023-06-06 12:56] LABS: NT-proBNP (BNP-Adult 18+) 528 pg/mL (<450); Troponin I < 0.012 ng/mL (0.01-0.034)
== END 2023-06-06 14:58 | disposition left against medical advice (07) ==
PROVIDERS: Emergency Provider Emergency Medicine; PCP Family Medicine
DX: R06.02 Shortness of breath (principal); R42 Dizziness and giddiness
CPT/HCPCS: 36415; 71045; 80053; 83605; 83880; 84484; 85025; 85610; 93005; 99283

== ENCOUNTER 2024-05-04 16:30 | Emergency (ER) | payer OTHER, SELFPAY ==
[2024-05-04] VITALS (8 sets, daily range): BP systolic 173–218; BP diastolic 88–133; PULSE 78–146; RESP 16–32; TEMP 36.6; O2SAT 94–99; BMI 27.4
--- NOTE | 2024-05-04 19:52 | DI.RAD.S_ITS ---
PROCEDURE: XR CHEST 1V INDICATIONS: chest pain TECHNIQUE: One view of the chest was acquired. COMPARISON: [facility], CR, XR CHEST 1V, 06/06/2023, 12:21. FINDINGS: Surgical changes and devices: None. Lungs and pleura: Diffuse interstitial prominence. Streaky bibasilar opacities. Small bilateral pleural effusions. Fluid noted in the right minor fissure. No pneumothorax. No dense consolidation. Mediastinum: Mediastinal contours appear stable. Heart size is mildly enlarged. Bones and chest wall: No suspicious bony lesions. Overlying soft tissues appear unremarkable. IMPRESSION: Mild cardiomegaly with findings suggestive of pulmonary edema/CHF. A concurrent infectious or inflammatory process may have a similar appearance if clinically appropriate. No dense consolidations. Dictated by: Daniel Rajan M.D. on 05/04/2024 at 20:32 Approved by: Daniel Rajan M.D. on 05/04/2024 at 20:34
[2024-05-04 20:01] LABS: Add Manual Diff / Slide Review NO; Basophils Absolute Auto 100 /uL (0-100); Basophils Percent Auto 1.2 % (0-2); Eosinophils Absolute Auto 100 /uL (0-450); Eosinophils Percent Auto 1.4 % (2-4); Hematocrit 41.8 % (36-46); Hemoglobin 14.1 g/dL (12.0-16.0); Lymphocytes Absolute Auto 1900 /uL (1100-4500); Lymphocytes Percent Auto 23.7 % (25-40); Mean Corpuscular HGB Conc 33.7 % (30-36); Mean Corpuscular Hemoglobin 30.3 PG (26-34); Mean Corpuscular Volume 89.8 fL (80-100); Monocytes Absolute Auto 500 /uL (0-900); Monocytes Percent Auto 6.3 % (3-14); Neutrophils Absolute Auto 5400 /uL (1500-7000); Neutrophils Percent Auto 67.4 % (50-75); Platelet Count 326 X10^3/uL (150-400); Red Blood Cell Count 4.66 X10^6/uL (4.0-5.2); Red Cell Distribution Width 14.8 % (11.6-14.8)
[2024-05-04 20:02] LABS: Prothrombin Time 11.3 SECONDS (9.4-12.5)
--- NOTE | 2024-05-04 20:02 | EKG_ITS ---
[facility] [place] [id number] [place] [id number] Test Date: 2024-05-04 Pat Name: Sully Moss Department: Room: Gender: Female System Administration Advisor: JESSICA : 1945 Requested By: Order Number: [id number] Reading MD: Michael Vera Measurements Intervals [place] Rate: 79 P: 75 IA: 222 QRS: 23 QRSD: 106 T: 99 QT: 344 QTc: 394 Interpretive Statements Sinus rhythm with 1st degree AV block ST & T wave abnormality, consider lateral ischemia Electronically Signed On 05-06-2024 18:37:26 PDT by Michael Vera
[2024-05-04 20:05] LABS: PTT Partial Thromboplastin Tim 40 SECONDS (25.1-36.5)
[2024-05-04 20:20] LABS: Alanine Aminotransferase 24 IU/L (<35); Albumin 4.7 g/dL (3.5-5.0); Albumin Globulin Ratio 1.3 (1.0-2.8); Alkaline Phosphatase 76 U/L (38-126); Aspartate Aminotransferase 40 IU/L (14-36); BUN Creatinine Ratio 27.8 (6-22); Bilirubin Total 0.8 mg/dL (0.2-1.3); Blood Urea Nitrogen 15 mg/dL (7-17); Calcium 9.4 mg/dL (8.4-10.2); Carbon Dioxide 27 mmol/L (22-32); Chloride 105 mmol/L (98-107); Creatine Kinase 103 U/L (30-135); Estimated Glomerular Filt Rate > 60 mL/min (>60); Globulin 3.5 g/dL (1.7-4.1); Glucose 145 mg/dL (80-110); HEMOLYSIS 43 (0-50); Lipase 118 U/L (23-300); Magnesium 2.2 mg/dL (1.6-2.3); Sodium 139 mmol/L (137-145); Total Protein 8.2 g/dL (6.3-8.2)
[2024-05-04 20:25] LABS: Troponin I < 0.012 ng/mL (0.01-0.034)
--- NOTE | 2024-05-04 20:43 | ED_ITS ---
HPI - General Adult General Chief complaint: Hypertension Stated complaint: HBP, sent by EMS Time Seen by Provider: 05/04/24 18:58 Source: patient Mode of arrival: Family Vehicle History of Present Illness HPI narrative: 78-year-old woman who reportedly is followed by Dr Hartman. She has a history of hypertension, hyperlipidemia, hypothyroid problems and states she has not taken her medications for the last 3 months. She currently lives with 1 son in [place]. Has multiple psychosocial issues that she would like fixed today including the fact that she does not like living with her son, she prefers her son that is in [place], that she is returning to the [facility] on , she has 4 boxes of medications from her , significant flight of ideas and difficult to redirect however no complaints of chest pain, dyspnea, orthopnea. Her speech and breathing is clearly not limited in any way. No evidence of stroke or acute neurologic findings. EMS recommended that she come to the emergency department today for follow up and further evaluation of her significant hypertension for which she is not taking prescribed medications. Related Data Home Medications Medication Instructions Recorded Confirmed atorvastatin 80 mg tablet 80 mg PO DAILY 12/25/22 12/25/22 calcium carb and lactate 200 2 tab PO BID 12/25/22 12/25/22 mg-vitamin D3 6.25 mcg (250 unit) tablet calcium carbonate 600 mg-vitamin 2 tab PO DAILY 12/25/22 12/25/22 D3 10 mcg (400 unit) tablet (Calcium 600 + D(3)) cyanocobalamin (vitamin B-12) 500 mcg PO DAILY 12/25/22 12/25/22 1,000 mcg tablet (Vitamin B-12) hydrochlorothiazide 25 mg tablet 25 mg PO DAILY 12/25/22 12/25/22 irbesartan 150 mg tablet 150 mg PO DAILY 12/25/22 12/25/22 levothyroxine 75 mcg tablet 75 mcg PO DAILY 12/25/22 12/25/22 Previous Rx's Medication Instructions Recorded hydrochlorothiazide 25 mg tablet 25 mg PO DAILY #30 tabs 05/04/24 irbesartan 150 mg tablet 150 mg PO DAILY #30 tabs 05/04/24 Allergies Allergy/AdvReac Type Severity Reaction Status Date / Time aspirin Allergy Unknown Verified 12/25/22 11:26 Review of Systems Review of Systems Narrative: Pertinent positive and negative findings as per HPI Patient History Medical History (Updated 05/04/24 @ 21:33 by Funmilayo Greenwood MD) Hyperthyroidism Hyperlipidemia Hypertension Social History Smoking Status: Never smoker Smoking Status: Never smoker alcohol intake frequency: holidays/special occasions only Substance Use Type: does not use Exam Initial Vital Signs Initial Vital Signs: Vital Signs Temperature 97.8 F 05/04/24 16:36 Pulse Rate 95 H 05/04/24 16:36 Respiratory Rate 16 05/04/24 16:36 Blood Pressure 218/133 H 05/04/24 16:36 Pulse Oximetry 98 05/04/24 16:36 Oxygen Delivery Method Room Air 05/04/24 16:36 General: Healthy appearing, in no acute distress. Well-nourished well- developed HEENT: Moist mucous membranes, normal sclera with reactive pupils, Neck: No JVD, supple Respiratory: Lungs are clear to auscultation, no wheezing no rales no rhonchi. Full and symmetrical air movement Cardiac: Regular rate and rhythm no murmurs no bruits Abdomen: Soft, nontender, good bowel tones, no flank pain Skin: Warm and dry, no rashes Neurologic: Grossly neurologically intact with no obvious asymmetries or abnormalities, no tremor Extremities: No trauma, well perfused Psych: Tangential, slightly pressured, difficult to redirect, able to speak in complete sentences is oriented to person time and place Course Orders Ordered: ED Orders 05/04/24 19:36 Complete Blood Count AUTO DIFF Stat Comprehensive Metabolic Panel Stat Lipase Stat Magnesium Stat PTT Partial Thromboplastin Jeremi Stat Prothrombin Time INR Stat Troponin & CK Cardiac Panel Stat 05/04/24 19:52 XR chest 1V Stat EKG-12 Lead Stat Vital Signs Vital signs: Vital Signs - 8 hr 05/04/24 16:36 Temperature 97.8 F Pulse Rate 95 H Respiratory Rate 16 Blood Pressure 218/133 H Pulse Oximetry 98 Oxygen Delivery Method Room Air Medical Decision Making Lab Data 05/04/24 19:36 05/04/24 19:36 Labs: Lab Results 05/04/24 Range/Units 19:36 WBC 8.0 (4.5-11.0) X10^3/uL RBC 4.66 (4.0-5.2) X10^6/uL Hgb 14.1 (12.0-16.0) g/dL Hct 41.8 (36-46) % MCV 89.8 (80-100) fL MCH 30.3 (26-34) PG MCHC 33.7 (30-36) % RDW 14.8 (11.6-14.8) % Plt Count 326 (150-400) X10^3/uL Neut % (Auto) 67.4 (50-75) % Lymph % (Auto) 23.7 L (25-40) % [place] % (Auto) 6.3 (3-14) % Eos % (Auto) 1.4 L (2-4) % Baso % (Auto) 1.2 (0-2) % Neut # (Auto) 5400 (4012-5711) /uL Lymph # (Auto) 1900 (1064-3337) /uL [place] # (Auto) 500 (0-900) /uL Eos # (Auto) 100 (0-450) /uL Baso # (Auto) 100 (0-100) /uL PT 11.3 (9.4-12.5) SECONDS INR 1.0 (0.9-1.3) APTT 40 H (25.1-36.5) SECONDS Sodium 139 (137-145) mmol/L Potassium 4.0 (3.4-5.1) mmol/L Chloride 105 (98-107) mmol/L Carbon Dioxide 27 (22-32) mmol/L BUN 15 (7-17) mg/dL Creatinine 0.54 (0.52-1.04) mg/dL Estimated GFR > 60 (>60) mL/min BUN/Creatinine Ratio 27.8 H (6-22) Glucose 145 H (80-110) mg/dL Calcium 9.4 (8.4-10.2) mg/dL Magnesium 2.2 (1.6-2.3) mg/dL Total Bilirubin 0.8 (0.2-1.3) mg/dL AST 40 H (14-36) IU/L ALT 24 (<35) IU/L Alkaline Phosphatase 76 (38-126) U/L Total Creatine Kinase 103 (30-135) U/L Troponin I < 0.012 (0.01-0.034) ng/mL Total Protein 8.2 (6.3-8.2) g/dL Albumin 4.7 (3.5-5.0) g/dL Globulin 3.5 (1.7-4.1) g/dL Albumin/Globulin Ratio 1.3 (1.0-2.8) Lipase 118 (23-300) U/L MDM Narrative Medical decision making narrative: CC: Asymptomatic hypertension Complicating co-morbidities: Patient has not taken medications for 3 months according to her. She does live with her son. She does have a primary care provider. It is unclear if prescriptions are available for her to pick up operator and she has not done so or if prescriptions have run out. She does have a diagnosis of hyperthyroidism and I do not see recent thyroid studies done Data collected from: patient Social determinants of health that may influence the patients condition: Psychosocial issues none of which are immediate threat to her health nor fixable from the emergency department Medical records reviewed: Prior ER visits are reviewed, similar visit for blood pressure elevation in December Differential considered: Hypertensive crisis, beau/hypomania, progressive dementia, acute coronary syndrome, stroke-like effects Exam documented above, pertinent findings include: Patient's physical exam is unremarkable. Lab Test results independently reviewed as above. Pertinent findings: Chemistries are reassuring. CBC is unremarkable TSH with reflex T4 is added and will need to be followed up by her primary care physician Independently reviewed EKG: Sinus rhythm. Normal axis. No significant ischemic changes appreciated Imaging studies independently reviewed: Chest x-ray is unremarkable Discussion: 78-year-old woman with Psychosocial issues currently living with her son. Convoluted history, states she is seeing her primary care doctor on and then going to the [facility] on . Because his unclear if she has refills available we will go ahead and refill both her hydrochlorothiazide and her irbesartan. She does need to follow up with her primary care provider regarding her blood pressure issues. Would strongly encourage her son to go with her. She states she has a number of medications for her , encouraged her to take these with her to her primary care doctor appointment so he might dispose of them appropriately for her. She is under the occlusion she will simply take them to the [facility] with her. At this time there was no evidence of acute coronary syndrome, acute neurologic compromise, dissection or alternate reasons that she would need to be hospitalized or advanced imaging required. Findings reviewed with the patient and clearly written out for her son to review as well. Care findings and plans were reviewed with her son. He is planning to go with her to her appointment with her primary care doctor. She is safe for discharge Discharge Plan Departure Patient Disposition: Home Clinical Impression: Hypertension Qualifiers: Hypertension type: primary hypertension Qualified Code(s): I10 - Essential (primary) hypertension Hypothyroidism Qualifiers: Hypothyroidism type: unspecified Qualified Code(s): E03.9 - Hypothyroidism, unspecified Instructions: DI for High Blood Pressure Activity Restrictions/Additional Instructions: Thank you for coming in today In the emergency department with blood work, chest x-ray, EKG and physical exam we have determined that you are not having acute heart attack, stroke or acute complications of your chronically elevated blood pressure. With your blood pressure consistently this high, you are very high risk for a stroke, heart attack and kidney failure. I would recommend that you restart your irbesartan 150 mg daily along with your hydrochlorothiazide 25 mg daily. With chronically elevated blood pressure it is most appropriate to treat this with daily medications and gradually allow it to returned down to healthier levels. There is no indication for hospitalization or IV blood pressure lowering medications in the emergency room this evening. I did add thyroid studies to your blood work for you to review with Dr. Hartman when you follow up with him. Please schedule an appointment with him as soon as possible Prescriptions: New irbesartan 150 mg tablet 150 mg PO DAILY Qty: 30 1RF hydrochlorothiazide 25 mg tablet 25 mg PO DAILY Qty: 30 1RF No Action atorvastatin 80 mg Tablet 80 mg PO DAILY cyanocobalamin (vitamin B-12) [Vitamin B-12] 1,000 mcg Tablet 500 mcg PO DAILY levothyroxine 75 mcg Tablet 75 mcg PO DAILY hydrochlorothiazide 25 mg Tablet 25 mg PO DAILY irbesartan 150 mg Tablet 150 mg PO DAILY calcium carbonate-vitamin D3 [Calcium 600 + D(3)] 600 mg-10 mcg (400 unit) Tablet 2 tab PO DAILY calcium carb,lactat-vitamin D3 200 mg-6.25 mcg (250 unit) Tablet 2 tab PO BID Referrals: Paddy Hartman MD [Primary Care Provider] - Stand Alone Forms: Patient Portal/API
--- NOTE | 2024-05-04 21:30 | PC.NURSE ---
Pt going through stock draws and taking supplies including IVs, koban, bandages, straight caths, urinals, bandages etc. Pt also requesting to keep her IV after it was removed, BP cuff and leads. All supplies reclaimed and pt asked to stop taking supplies. Pt verbalized understanding and moved to room 3A that supplies had been removed from to await her son.
[2024-05-04 22:41] LABS: Free T4, Direct Thyroxine 0.63 ng/dL (0.78-2.19)
== END 2024-05-04 22:00 | disposition home or self-care (01) ==
PROVIDERS: Emergency Provider Emergency Medicine; PCP Family Medicine
DX: I10 Essential (primary) hypertension (principal); E03.9 Hypothyroidism, unspecified; R07.9 Chest pain, unspecified; Z79.899 Other long term (current) drug therapy
CPT/HCPCS: 36415; 71045; 80053; 82550; 83690; 83735; 84439; 84443; 84484; 85025; 85610; 85730; 93005; 99283; 99284